=== PATIENT | male | born 1990 | race Caucasian/White ===

== ENCOUNTER 2017-02-20 12:03 | Inpatient (IN) | payer MEDICAID ==
[~2017-02-20] VITALS: Ht 175.3 cm; Wt 59.6 kg
[2017-02-20 12:25] LABS: BASOPHILS # (AUTO) 0.02 K/uL (0.00-0.20); BASOPHILS % (AUTO) 0.3 % (0.0-2.0); EOSINOPHILS # (AUTO) 0.04 K/uL (0.00-0.70); EOSINOPHILS % (AUTO) 0.63 % (1.0-6.0); HEMATOCRIT 45.1 % (41-53); LYMPHOCYTES # (AUTO) 1.2 K/uL (1.0-4.8); LYMPHOCYTES % (AUTO) 19.4 % (22.0-44.0); MEAN CORPUSCULAR HGB CONC 33.1 G/dL (31.0-37.0); MEAN CORPUSCULAR VOLUME 87 fL (80-100); MONOCYTES # (AUTO) 0.5 K/uL (0.1-1.0); MONOCYTES % (AUTO) 7.4 % (2.0-9.0); NEUTROPHILS # (AUTO) 4.4 K/uL (1.8-7.7); NEUTROPHILS % (AUTO) 72.3 % (40.0-70.0); PLATELET COUNT (AUTO) 273 K/uL (150-450); RED BLOOD CELL COUNT(AUTO) 5.16 MIL/uL (4.50-5.90); RED CELL DISTRIBUTION WIDTH 14.1 % (11.5-14.5); WHITE BLOOD COUNT (AUTO) 6.1 K/uL (4.5-11.0)
[2017-02-20 12:36] LABS: ANION GAP 9 mmol/L (8-16); CALCIUM, TOTAL 9.1 mg/dL (8.8-10.5); CARBON DIOXIDE 27 mmol/L (22-29); CHLORIDE 103 mmol/L (98-107); GLOMERULAR FILTR. RATE CALC > 60 mL/min (>60); POTASSIUM 3.4 mmol/L (3.5-5.1); SODIUM SERUM 139 mmol/L (136-145); UREA NITROGEN, BLOOD 12 mg/dL (7-18)
[2017-02-20 12:42] LABS: ALANINE AMINOTRANSFERASE 25 U/L (12-78); ALBUMIN 4.4 g/dL (3.4-5.0); ASPARTATE AMINOTRANSFERASE 19 U/L (15-37); BILIRUBIN,TOTAL 0.5 mg/dL (0.1-1.0); TOTAL PROTEIN, SERUM 7.9 g/dL (6.4-8.2)
[2017-02-20 13:00] LABS: RBC MORPHOLOGY COMMENT NORMAL RBC MORPH
[2017-02-20] MEDS ORDERED: DiphenhydrAMINE HCL 50 MG/ML VIAL IM ONE (13:00)
[2017-02-20] MEDS ORDERED: LORazepam 2 MG/ML VIAL IM ONE (13:00)
[2017-02-20] MEDS ORDERED: HALOPERIDOL LACTATE 5 MG/ML VIAL IM ONE (13:00)
[2017-02-20] MEDS ORDERED: ZOLPIDEM TARTRATE 10 MG TABLET PO PRN (14:45)
[2017-02-20 16:11] VITALS: BP 105/76
[2017-02-21 06:58] VITALS: BP 122/84
[2017-02-21 08:58] VITALS: BP 136/73
[2017-02-21] MEDS ORDERED: POTASSIUM CHLORIDE 20 MEQ ER TABLET PO ONE (10:00)
[2017-02-21 16:23] VITALS: BP 146/80
[2017-02-21] MEDS: LORazepam 2 MG TABLET PO PRN (18:44)
[2017-02-21] MEDS: HALOPERIDOL 5 MG TABLET PO PRN (18:44)
[2017-02-21] MEDS: OLANZapine 5 MG TABLET PO SCH (20:31)
[2017-02-22 05:24] VITALS: BP 108/78
[2017-02-22] MEDS: OLANZapine 5 MG TABLET PO SCH ×2 (08:46→20:21)
[2017-02-22 08:54] VITALS: BP 122/69
[2017-02-22] MEDS: LORazepam 2 MG TABLET PO PRN ×2 (08:57→16:30)
[2017-02-22] MEDS: HALOPERIDOL 5 MG TABLET PO PRN ×2 (08:57→16:30)
[2017-02-22 09:00] LABS: ANION GAP 11 mmol/L (8-16); CARBON DIOXIDE 26 mmol/L (22-29); CHLORIDE 102 mmol/L (98-107); CREATININE 0.85 mg/dL (0.60-1.30); GLOMERULAR FILTR. RATE CALC > 60 mL/min (>60); POTASSIUM 4.2 mmol/L (3.5-5.1); SODIUM SERUM 139 mmol/L (136-145); THYROID STIMULATING HORMONE 0.98 uIU/mL (0.36-3.74); UREA NITROGEN, BLOOD 15 mg/dL (7-18)
[2017-02-22 16:45] VITALS: BP 122/85
[2017-02-23 00:10] VITALS: BP 124/77
[2017-02-23] MEDS ORDERED: INFLUENZA VIRUS VACCINE QVS 2017-18 (3YR+)/PF 60 MCG/0.5 ML SYRINGE IM ONE (03:30)
[2017-02-23] MEDS: OLANZapine 5 MG TABLET PO SCH (08:51)
[2017-02-23 08:55] VITALS: BP 121/73
[2017-02-23] MEDS ORDERED: OLAN5TAB2 PO (09:42)
[2017-02-23 12:04] LABS: HEPATITIS Bs ANTIGEN SCREEN P Negative (Negative); HEPATITIS C AB SCREEN 0.1 s/co ratio (0.0-0.9)
== END 2017-02-23 12:30 | disposition home or self-care (01) | DRG 885 ==
LOC: EMS 12:05 → B2S 13:45
PROVIDERS: ADMIT Psychiatry & Neurology Child & Adolescent Psychiatry; ATTEND Psychiatry & Neurology Child & Adolescent Psychiatry
DX: F20.0 Paranoid schizophrenia (principal); Z59.0 Homelessness; E87.6 Hypokalemia; Z87.891 Personal history of nicotine dependence; Z28.21 Immunization not carried out because of patient refusal
CPT/HCPCS: 80074; 82306; 82607; 82746; 84439; 84443; 96372; 99285; G0480; J1200; J1630; J2060

== ENCOUNTER 2017-02-26 10:17 | Inpatient (IN) | payer MEDICAID ==
[~2017-02-26] VITALS: Ht 180.3 cm; Wt 58.6 kg
[~2017-02-26 10:17] MED LIST: OLAN5TAB2 PO
[2017-02-26] MEDS ORDERED: DiphenhydrAMINE HCL 50 MG/ML VIAL IM ONE (10:45)
[2017-02-26] MEDS ORDERED: LORazepam 2 MG/ML VIAL IM ONE (10:45)
[2017-02-26] MEDS ORDERED: HALOPERIDOL LACTATE 5 MG/ML VIAL IM ONE (10:45)
[2017-02-26 12:23] LABS: BASOPHILS % (AUTO) 0.2 % (0.0-2.0); EOSINOPHILS % (AUTO) 0.4 % (1.0-6.0); LYMPHOCYTES # (AUTO) 0.6 K/uL (1.0-4.8); LYMPHOCYTES % (AUTO) 11.4 % (22.0-44.0); MEAN CORPUSCULAR HEMOGLOBIN 29.6 pg (26.0-34.0); MEAN CORPUSCULAR HGB CONC 34.1 G/dL (31.0-37.0); MEAN CORPUSCULAR VOLUME 87 fL (80-100); MONOCYTES # (AUTO) 0.5 K/uL (0.1-1.0); MONOCYTES % (AUTO) 9.9 % (2.0-9.0); NEUTROPHILS # (AUTO) 4.2 K/uL (1.8-7.7); NEUTROPHILS % (AUTO) 78.1 % (40.0-70.0); PLATELET COUNT (AUTO) 246 K/uL (150-450); RED BLOOD CELL COUNT(AUTO) 4.73 MIL/uL (4.50-5.90); RED CELL DISTRIBUTION WIDTH 13.9 % (11.5-14.5); WHITE BLOOD COUNT (AUTO) 5.4 K/uL (4.5-11.0)
[2017-02-26] MEDS ORDERED: LORazepam 2 MG TABLET PO PRN (12:30)
[2017-02-26 12:33] LABS: ANION GAP 9 mmol/L (8-16); CALCIUM, TOTAL 8.9 mg/dL (8.8-10.5); CARBON DIOXIDE 26 mmol/L (22-29); CHLORIDE 106 mmol/L (98-107); GLOMERULAR FILTR. RATE CALC > 60 mL/min (>60); POTASSIUM 3.6 mmol/L (3.5-5.1); SODIUM SERUM 141 mmol/L (136-145); UREA NITROGEN, BLOOD 16 mg/dL (7-18)
[2017-02-26 12:39] LABS: ALANINE AMINOTRANSFERASE 21 U/L (12-78); ASPARTATE AMINOTRANSFERASE 19 U/L (15-37); BILIRUBIN,TOTAL 0.6 mg/dL (0.1-1.0); TOTAL PROTEIN, SERUM 7.2 g/dL (6.4-8.2)
[2017-02-26] MEDS ORDERED: HALOPERIDOL 5 MG TABLET PO PRN (12:45)
[2017-02-26] MEDS ORDERED: ZOLPIDEM TARTRATE 10 MG TABLET PO PRN ×2 (12:45→20:15)
[2017-02-26] MEDS ORDERED: OLANZapine 5 MG TABLET PO SCH (21:00)
[2017-02-26 21:19] VITALS: BP 127/74
[2017-02-26] MEDS ORDERED: INFLUENZA VIRUS VACCINE QVS 2017-18 (3YR+)/PF 60 MCG/0.5 ML SYRINGE IM ONE (21:30)
[2017-02-26] MEDS: OLANZapine 5 MG TABLET PO SCH (22:02)
[2017-02-27 05:22] VITALS: BP 125/72
[2017-02-27 08:06] VITALS: BP 138/87
[2017-02-27 08:35] LABS: CHOL/HDL RATIO 2.7 (4.2-7.3); THYROID STIMULATING HORMONE 0.58 uIU/mL (0.36-3.74)
[2017-02-27 08:48] LABS: HEMOGLOBIN A1C 5.5 % (4.5-6.2)
[2017-02-27] MEDS: LORazepam 2 MG TABLET PO PRN ×2 (08:51→20:08)
[2017-02-27] MEDS: HALOPERIDOL 5 MG TABLET PO PRN (08:51)
[2017-02-27] MEDS: OLANZapine 5 MG TABLET PO SCH ×2 (08:52→20:08)
[2017-02-27] MEDS ORDERED: ALBUTEROL SULFATE HFA 90 MCG/PUFF 8 GM INHALER IH PRN (09:45)
[2017-02-27 16:00] VITALS: BP 133/82
[2017-02-28 04:40] VITALS: BP 121/74
[2017-02-28 08:01] VITALS: BP 108/65
[2017-02-28] MEDS: HALOPERIDOL 5 MG TABLET PO PRN ×2 (08:24→16:13)
[2017-02-28] MEDS: OLANZapine 5 MG TABLET PO SCH ×2 (08:24→20:38)
[2017-02-28] MEDS: LORazepam 2 MG TABLET PO PRN ×2 (08:24→16:13)
[2017-02-28 16:05] VITALS: BP 107/69
[2017-03-01 03:37] VITALS: BP 122/66
[2017-03-01 08:27] VITALS: BP 134/82
[2017-03-01] MEDS: LORazepam 2 MG TABLET PO PRN (08:37)
[2017-03-01] MEDS: OLANZapine 5 MG TABLET PO SCH (08:37)
== END 2017-03-01 11:12 | disposition home or self-care (01) | DRG 885 ==
LOC: EMS 10:18 → B3A 20:18
PROVIDERS: ADMIT Psychiatry & Neurology Child & Adolescent Psychiatry; ATTEND Psychiatry & Neurology Child & Adolescent Psychiatry
DX: F20.0 Paranoid schizophrenia (principal); E87.6 Hypokalemia; F12.10 Cannabis abuse, uncomplicated; F15.10 Other stimulant abuse, uncomplicated; J45.909 Unspecified asthma, uncomplicated; F17.210 Nicotine dependence, cigarettes, uncomplicated; Z79.899 Other long term (current) drug therapy
CPT/HCPCS: 83036; 84439; 84443; 87081; 90471; 96372; 99285; 99406; G0480; J1200; J1630; J2060